=== PATIENT | female | born 1980 | race Caucasian/White ===

== ENCOUNTER 2018-12-09 20:35 | Emergency (ER) | payer BC ==
[2018-12-09 21:34] LABS: PLATELET COUNT 258 10^3/uL (150-400)
--- NOTE | 2018-12-09 21:42 | EDPHY ---
H & P Smoking Status: Never smoked Time Seen by Provider: 12/09/18 21:02 HPI/ROS: Chief complaint: Chest, shoulder and arm pain History of present illness: This is a 38-year-old female who presents to the emergency department for evaluation of chest, shoulder and arm pain. She reports she has had symptoms on and off for the last 4 weeks. She has seen a primary care doctor about it. Primary care doctor has evaluated with an EKG. She has further had a CT angiogram for PE which she reports was negative. The symptoms are waxing and waning in intensity. She believes this is likely a pinched nerve as it worsened after lifting the other day. The most intense symptoms are the symptoms going into her neck and down her arm. Symptoms will radiate must the way down the arm but not into the fingers. There is no associated weakness. She presents today because over the last week she has had mild dizziness. She is concerned because she has a complicated medical history over the last half year. She gave in May of last year. She developed preeclampsia. She has been suffering from high blood pressure since then. She is followed by Nephrology and is currently treated with lisinopril. Her blood pressures today are consistent with her baseline blood pressure which is being followed by Nephrology and treated. She denies other associated signs or symptoms including no fevers or cold symptoms, no shortness of breath, no pain or swelling in the legs, no trauma. Review of systems: A 10 point review of systems was obtained and other than described above was negative (Asad Rivera) Physical Exam: General Appearance: Alert, no distress. Eyes: Pupils equal and round no pallor or injection. ENT, Mouth: Mucous membranes moist. Respiratory: There are no retractions, lungs are clear to auscultation. Cardiovascular: Regular rate and rhythm. No murmurs rubs or gallops. Radial pulses 2+. No carotid bruits. Neurological: Alert and oriented x4. Strength and sensation intact and symmetrical. Skin: Warm and dry, no rashes. Musculoskeletal: Neck is supple non tender. Extremities are symmetrical, full range of motion. Psychiatric: Patient is oriented X 3, there is no agitation. (Asad Rivera) Constitutional: Initial Vital Signs Temperature (C) 36.7 C 12/09/18 20:39 Heart Rate 96 12/09/18 20:39 Respiratory Rate 18 12/09/18 20:39 Blood Pressure 159/114 H 12/09/18 20:39 O2 Sat (%) 93 12/09/18 20:39 O2 Delivery Mode Room Air Allergies/Adverse Reactions: No Known Allergies Allergy (Unverified 12/09/18 20:42) Home Medications: Medication Instructions Recorded Buspar (*) 12/09/18 Lisinopril 12/09/18 MDM/Departure - MDM Diagnostics: EKG: Complete interpretation has been separately recorded in the [email or web address] archive. Summary impression: Sinus rhythm, rate 78, no ischemic changes noted PHYSICIAN DOCUMENTATION: The patient was evaluated and managed by the Physician Fashion Journalist. My co- signature indicates that I have reviewed this chart and I agree with the findings and plan of care as documented. I am the secondary supervising physician. (Nitin Cortez) ED Course/Re-evaluation: Patient is discussed with my secondary supervising physician Dr. Wally Cortez. Patient presents as listed. She is nontoxic. Physical exam is benign. Blood studies and EKG unremarkable. As she reports a recent CTA which was negative at [facility] further imaging studies were not pursued. I discussed with her it is not clear as to the cause of her symptoms. I do believe she is appropriate for discharge home. She is asked to follow up with a primary care doctor as well as Cardiology and is given referral information for Cardiology. Home care is discussed. Strict return precautions are given. The patient voiced understanding and agreement with plan. (Asad Rivera) Differential Diagnosis: Included but not limited to musculoskeletal, radiculopathy, unlikely cardiopulmonary (Asad Rivera) - Depart Disposition: Home, Routine, Self-Care Clinical Impression: Chest pain Qualifiers: Chest pain type: unspecified Qualified Code(s): R07.9 - Chest pain, unspecified Condition: Good Instructions: Chest Pain (ED) Additional Instructions: Follow-up with your primary care doctor and a blade grinder for continued evaluation and care If symptoms worsen or new symptoms develop return to the emergency room for recheck Referrals: Ronna Mccabe DO [Primary Care Provider] - As per Instructions Daniel Pagan MD [Medical Doctor] - As per Instructions
--- NOTE | 2018-12-09 22:01 | CPEKG ---
Test Reason : OPEN Blood Pressure : / mmHG Vent. Rate : 078 BPM Atrial Rate : 078 BPM P-R Int : 152 ms QRS Dur : 097 ms QT Int : 367 ms P-R-T Axes : 049 059 032 degrees QTc Int : 419 ms Sinus rhythm Abnormal inferior Q waves Confirmed by Nitin Cortez ([id number]) on 12/09/2018 10:01:06 PM Referred By: Nitin Cortez Confirmed By:Nitin Cortez
[2018-12-09 22:28] VITALS: BP 169/115
== END 2018-12-09 22:28 | disposition home or self-care (01) ==
DX: R07.9 Chest pain, unspecified (principal)
CPT/HCPCS: 84484-ER